=== PATIENT | male | born 1930 | race Caucasian/White ===

== ENCOUNTER 2016-02-27 20:15 | Inpatient (IN) | payer OTHER, BC ==
[~2016-02-27] VITALS: Ht 180.3 cm; Wt 85.7 kg
[2016-02-27 21:03] LABS: HEMATOCRIT 47.3 % (38.0-50.0); MCH 31.9 PG (29.0-34.0); MCHC 33.2 G/DL (30.0-36.0); MCV 96.1 FL (86-99); MEAN PLAT.VOLUME 9.8 uM^3 (9.0-12.4); PLATELET COUNT 235 K/uL (156-360); RBC DIS.WIDTH-CV 13.1 % (11.8-14.6); RBC DIS.WIDTH-SD 44.5 % (39-53); RED BLOOD COUNT 4.92 M/uL (4.00-5.50)
[2016-02-27 21:12] LABS: CHLORIDE 103 mEq/L (99-109); POTASSIUM 4.4 mEq/L (3.7-5.4); SODIUM 142 mEq/L (136-147)
[2016-02-27 21:14] LABS: GLUCOSE 145 mg/dL (70-99)
[2016-02-27 21:16] LABS: ANION GAP 13 MEQ/L (2-14)
[2016-02-27 21:18] LABS: GFR ESTIMATE (CALCULATED) > 59 mL/min/
[2016-02-27 21:19] LABS: UREA NITROGEN (BUN) 26 mg/dL (9-23)
[2016-02-27 21:23] LABS: TROP-I INTERPRETATION NEGATIVE; TROPONIN-I < 0.01 ng/mL (0.0-0.30)
[2016-02-27] MEDS ORDERED: FLOMAX0.4 MG PO (22:37)
[2016-02-27] MEDS ORDERED: SINEMET 10-1001 EACH PO (22:38)
[2016-02-27] MEDS ORDERED: LO-DOSE ASPIRIN81 M1 PO (22:39)
[2016-02-27] MEDS ORDERED: THERAGRAN1 TABLET PO (22:39)
[2016-02-27] MEDS ORDERED: LEXAPRO10 MG PO (22:39)
[2016-02-27] MEDS ORDERED: ARICEPT10 MG PO (22:40)
[2016-02-27] MEDS ORDERED: VITAMIN D-32000 UNI2 PO (22:40)
[2016-02-27 23:57] VITALS: BP 166/71
[2016-02-28] VITALS (7 sets, daily range): BP systolic 89–164; BP diastolic 56–79
[2016-02-28 01:50] LABS: ADD MIUA? NO; BILIRUBIN NEGATIVE; BLOOD NEGATIVE; COLOR DK YELLOW ((YELLOW)); GLUCOSE (STRIP) NEGATIVE; KETONES TRACE; LEUKOCYTES NEGATIVE; NITRITE NEGATIVE; PROTEIN (STRIP) 30; SPECIFIC GRAVITY 1.028 (1.000-1.030); UCUL ADDED? NO; UROBILINOGEN 0.2 MG/DL (0.2-1.0)
[2016-02-28 02:07] LABS: INFLUENZA A VIRAL ANTIGEN NEGATIVE; INFLUENZA B VIRAL ANTIGEN NEGATIVE
[2016-02-28 06:49] LABS: HEMATOCRIT 40.2 % (38.0-50.0); MCH 30.8 PG (29.0-34.0); MCHC 31.8 G/DL (30.0-36.0); MCV 96.9 FL (86-99); MEAN PLAT.VOLUME 10.1 uM^3 (9.0-12.4); PLATELET COUNT 180 K/uL (156-360); RBC DIS.WIDTH-CV 13.2 % (11.8-14.6); RBC DIS.WIDTH-SD 46.5 % (39-53); RED BLOOD COUNT 4.15 M/uL (4.00-5.50)
[2016-02-28 06:50] LABS: C DIFF TOXIN NEGATIVE (NEGATIVE)
[2016-02-28 06:50] LABS: WHITE BLOOD COUNT 9.5 K/uL (4.1-10.2)
[2016-02-28 06:53] LABS: PROBE CHECK PASS; SPECIMEN PROCESSING CONTROL PASS
[2016-02-28 08:11] LABS: INTERNAL CONTROL VALID? YES
[2016-02-29] VITALS: BP 106/51
[2016-02-29 04:00] VITALS: BP 103/61
[2016-02-29 06:59] LABS: HEMATOCRIT 35.4 % (38.0-50.0); MCH 31.6 PG (29.0-34.0); MCHC 32.8 G/DL (30.0-36.0); MCV 96.5 FL (86-99); MEAN PLAT.VOLUME 10.5 uM^3 (9.0-12.4); PLATELET COUNT 170 K/uL (156-360); RBC DIS.WIDTH-CV 13.5 % (11.8-14.6); RBC DIS.WIDTH-SD 47.6 % (39-53); RED BLOOD COUNT 3.67 M/uL (4.00-5.50)
[2016-02-29 07:25] LABS: ANION GAP 5 MEQ/L (2-14); CHLORIDE 110 MEQ/L (99-109); GFR ESTIMATE (CALCULATED) > 59 mL/min/; POTASSIUM 3.6 MEQ/L (3.7-5.4); SAMPLE HEMOLYSIS CHECK 0; SAMPLE ICTERIC CHECK 0; SAMPLE LIPEMIA CHECK 0; SODIUM 141 MEQ/L (136-147); UREA NITROGEN (BUN) 25 mg/dL (9-23)
[2016-02-29 07:26] LABS: GLUCOSE 88 mg/dL (70-99)
[2016-02-29 08:06] VITALS: BP 112/65
[2016-02-29 16:04] VITALS: BP 116/65
[2016-02-29 21:02] VITALS: BP 109/60
[2016-02-29 22:53] LABS: ADD MIUA? YES; BILIRUBIN NEGATIVE; BLOOD LARGE; COLOR YELLOW ((YELLOW)); GLUCOSE (STRIP) NEGATIVE; KETONES NEGATIVE; LEUKOCYTES NEGATIVE; NITRITE NEGATIVE; PROTEIN (STRIP) TRACE; SPECIFIC GRAVITY 1.021 (1.000-1.030); UROBILINOGEN 0.2 MG/DL (0.2-1.0)
[2016-02-29 23:24] LABS: BACTERIA NONE SEEN; CASTS NONE SEEN /LPF; CRYSTALS NONE SEEN; EPITHELIAL CELLS 1+; MUCUS NONE SEEN; RED BLOOD CELLS 20-30 /HPF (0-5); UCUL ADDED? NO; WHITE BLOOD CELLS 0-5 /HPF (0-5)
[2016-03-01 07:40] VITALS: BP 110/64
[2016-03-01 11:30] LABS: HEMATOCRIT 36.2 % (38.0-50.0); MCHC 33.1 G/DL (30.0-36.0); MCV 93.5 FL (86-99); MEAN PLAT.VOLUME 10.8 uM^3 (9.0-12.4); PLATELET COUNT 180 K/uL (156-360); RBC DIS.WIDTH-CV 13.2 % (11.8-14.6); RBC DIS.WIDTH-SD 45.5 % (39-53); RED BLOOD COUNT 3.87 M/uL (4.00-5.50); WHITE BLOOD COUNT 12.4 K/uL (4.1-10.2)
[2016-03-01 11:38] VITALS: BP 105/56
[2016-03-01 11:58] LABS: ANION GAP 10 MEQ/L (2-14); CHLORIDE 110 MEQ/L (99-109); GFR ESTIMATE (CALCULATED) > 59 mL/min/; GLUCOSE 95 mg/dL (70-99); POTASSIUM 3.6 MEQ/L (3.7-5.4); SAMPLE HEMOLYSIS CHECK 0; SAMPLE ICTERIC CHECK 0; SAMPLE LIPEMIA CHECK 0; SODIUM 144 MEQ/L (136-147); UREA NITROGEN (BUN) 18 mg/dL (9-23)
[2016-03-01 15:55] VITALS: BP 110/60
[2016-03-01 20:00] VITALS: BP 108/58
[2016-03-02] VITALS: BP 135/64
[2016-03-02 03:45] VITALS: BP 106/52
[2016-03-02 08:00] VITALS: BP 104/59
[2016-03-02 11:40] VITALS: BP 123/67
[2016-03-02 16:55] VITALS: BP 119/65
[2016-03-02 20:00] VITALS: BP 121/65
[2016-03-03] VITALS: BP 129/65
[2016-03-03 04:39] VITALS: BP 136/73
[2016-03-03 06:37] LABS: BASE EXCESS 1.9 mEq/L (-3 to +3); BICARBONATE 25.6 mEq/L (22-26); CARBOXY HGB 2.3 % (0-5); COMMENTS - BLOOD GASES A+C+; DEVICE VENTI MASK; METHEMOGLOBIN 1.7 % (0-1.5); O2 FLOW 12 L/MIN; PCO2 36 mm Hg (35-45); PO2 53 mm Hg (80-100); SITE LR; pH 7.46 (7.35-7.45)
[2016-03-03 06:38] LABS: FI02 50 %; TOTAL RESP RATE 19 resp/min
[2016-03-03 08:58] VITALS: BP 109/64
[2016-03-03 09:05] LABS: HEMATOCRIT 37.3 % (38.0-50.0); MCH 32.6 PG (29.0-34.0); MCHC 34.9 G/DL (30.0-36.0); MCV 93.5 FL (86-99); MEAN PLAT.VOLUME 10.9 uM^3 (9.0-12.4); PLATELET COUNT 221 K/uL (156-360); RBC DIS.WIDTH-CV 13.2 % (11.8-14.6); RBC DIS.WIDTH-SD 45.1 % (39-53); RED BLOOD COUNT 3.99 M/uL (4.00-5.50); WHITE BLOOD COUNT 11.3 K/uL (4.1-10.2)
[2016-03-03 09:41] LABS: ANION GAP 9 MEQ/L (2-14); CHLORIDE 111 MEQ/L (99-109); GFR ESTIMATE (CALCULATED) > 59 mL/min/; GLUCOSE 110 mg/dL (70-99); POTASSIUM 3.1 MEQ/L (3.7-5.4); SAMPLE HEMOLYSIS CHECK 0; SAMPLE ICTERIC CHECK 0; SAMPLE LIPEMIA CHECK 0; SODIUM 148 MEQ/L (136-147); UREA NITROGEN (BUN) 18 mg/dL (9-23)
[2016-03-03 12:18] VITALS: BP 109/56
[2016-03-03 15:03] VITALS: BP 132/60
[2016-03-03 20:00] VITALS: BP 102/54
[2016-03-04] VITALS: BP 135/83
[2016-03-04 04:00] VITALS: BP 122/55
[2016-03-04 06:30] LABS: HEMATOCRIT 36.4 % (38.0-50.0); MCH 30.3 PG (29.0-34.0); MCHC 32.4 G/DL (30.0-36.0); MCV 93.6 FL (86-99); MEAN PLAT.VOLUME 10.9 uM^3 (9.0-12.4); PLATELET COUNT 263 K/uL (156-360); RBC DIS.WIDTH-CV 13.5 % (11.8-14.6); RBC DIS.WIDTH-SD 45.9 % (39-53); RED BLOOD COUNT 3.89 M/uL (4.00-5.50); WHITE BLOOD COUNT 11.8 K/uL (4.1-10.2)
[2016-03-04 06:47] LABS: ANION GAP 8 MEQ/L (2-14); CHLORIDE 110 MEQ/L (99-109); GFR ESTIMATE (CALCULATED) > 59 mL/min/; GLUCOSE 136 mg/dL (70-99); POTASSIUM 3.5 MEQ/L (3.7-5.4); SAMPLE HEMOLYSIS CHECK 0; SAMPLE ICTERIC CHECK 0; SAMPLE LIPEMIA CHECK 0; SODIUM 146 MEQ/L (136-147); UREA NITROGEN (BUN) 22 mg/dL (9-23)
[2016-03-04 07:46] VITALS: BP 145/84
[2016-03-04 10:55] VITALS: BP 100/60
[2016-03-04 14:54] VITALS: BP 104/58
[2016-03-04 20:00] VITALS: BP 122/69
[2016-03-05] VITALS (7 sets, daily range): BP systolic 139–170; BP diastolic 66–84
[2016-03-05 11:26] LABS: ANION GAP 10 MEQ/L (2-14); CHLORIDE 108 MEQ/L (99-109); GFR ESTIMATE (CALCULATED) > 59 mL/min/; GLUCOSE 89 mg/dL (70-99); MAGNESIUM 2.1 mg/dl (1.3-2.7); POTASSIUM 3.6 MEQ/L (3.7-5.4); SAMPLE HEMOLYSIS CHECK 0; SAMPLE ICTERIC CHECK 0; SAMPLE LIPEMIA CHECK 0; SODIUM 148 MEQ/L (136-147); UREA NITROGEN (BUN) 25 mg/dL (9-23)
[2016-03-06] VITALS: BP 159/80
[2016-03-06 03:39] VITALS: BP 152/73
[2016-03-06 07:59] VITALS: BP 140/69
[2016-03-06 16:09] VITALS: BP 137/64
[2016-03-07] VITALS: BP 122/72
[2016-03-07 08:14] VITALS: BP 137/63
[2016-03-07 09:47] LABS: HEMATOCRIT 40.1 % (38.0-50.0); MCH 31.6 PG (29.0-34.0); MCHC 33.4 G/DL (30.0-36.0); MCV 94.6 FL (86-99); RBC DIS.WIDTH-CV 13.5 % (11.8-14.6); RBC DIS.WIDTH-SD 46.3 % (39-53); RED BLOOD COUNT 4.24 M/uL (4.00-5.50); WHITE BLOOD COUNT 13.6 K/uL (4.1-10.2)
[2016-03-07 09:56] LABS: MEAN PLAT.VOLUME 10.7 uM^3 (9.0-12.4); PLATELET COUNT 367 K/uL (156-360)
[2016-03-07 10:00] LABS: ADD MIUA? NO; BILIRUBIN NEGATIVE; BLOOD NEGATIVE; COLOR YELLOW ((YELLOW)); GLUCOSE (STRIP) NEGATIVE; KETONES NEGATIVE; LEUKOCYTES NEGATIVE; NITRITE NEGATIVE; PH, URINE 7.5 (5-8); PROTEIN (STRIP) NEGATIVE; SPECIFIC GRAVITY 1.025 (1.000-1.030); UROBILINOGEN 0.2 MG/DL (0.2-1.0)
[2016-03-07 10:08] LABS: UCUL ADDED? NO
[2016-03-07 10:42] LABS: ANION GAP 12 MEQ/L (2-14); CHLORIDE 108 MEQ/L (99-109); GFR ESTIMATE (CALCULATED) > 59 mL/min/; GLUCOSE 69 mg/dL (70-99); SAMPLE HEMOLYSIS CHECK 0; SAMPLE ICTERIC CHECK 0; SAMPLE LIPEMIA CHECK 0; SODIUM 144 MEQ/L (136-147); UREA NITROGEN (BUN) 21 mg/dL (9-23)
[2016-03-07 10:43] LABS: POTASSIUM 4.5 MEQ/L (3.7-5.4)
[2016-03-07 15:57] VITALS: BP 80/60
[2016-03-07 23:55] VITALS: BP 142/81
[2016-03-08 08:02] VITALS: BP 121/58
[2016-03-08 15:36] VITALS: BP 120/85
[2016-03-08 23:49] VITALS: BP 133/70
[2016-03-09 07:53] VITALS: BP 123/59
[2016-03-09 15:17] VITALS: BP 87/54
[2016-03-10 00:32] VITALS: BP 165/77
[2016-03-10 08:00] VITALS: BP 113/63
[2016-03-10 15:30] VITALS: BP 126/78
[2016-03-11] VITALS: BP 128/72
[2016-03-11 08:01] VITALS: BP 121/67
[2016-03-11 16:08] VITALS: BP 136/73
[2016-03-12 00:03] VITALS: BP 140/81
[2016-03-12 07:57] VITALS: BP 137/66
[2016-03-12 16:04] VITALS: BP 142/72
[2016-03-12 23:40] VITALS: BP 94/55
[2016-03-13 07:57] VITALS: BP 107/65
[2016-03-13 15:42] VITALS: BP 115/71
[2016-03-14 00:04] VITALS: BP 103/60
[2016-03-14 07:39] VITALS: BP 112/65
[2016-03-14] MEDS ORDERED: DONEPEZIL HCL5 MG PO (13:19)
[2016-03-14] MEDS ORDERED: PRAMIPEXOLE D0.25 MG PO (13:20)
[2016-03-14] MEDS ORDERED: DRONABINOL2.5 MG PO (13:20)
[2016-03-14] MEDS ORDERED: ESCITALOPRAM OX20 MG PO (13:20)
[2016-03-14 15:39] VITALS: BP 144/65
== END 2016-03-14 17:08 | DRG 871 ==
LOC: EME 20:15 → EDBD 20:15 → EDOF 22:32 → 5WEST 23:38 → 5SOUTH 02-28 00:52 → 5WEST 02-28 00:52 → 5SOUTH 02-28 03:05
PROVIDERS: Hospitalist; Internal Medicine; Physician Assistant; Physician Assistant Medical; Student in an Organized Health Care Education/Training Program
DX: A41.9 Sepsis, unspecified organism (principal); J69.0 Pneumonitis due to inhalation of food and vomit; R64 Cachexia; R62.7 Adult failure to thrive; G31.83 Neurocognitive disorder with Lewy bodies; F02.81 Dementia in other diseases classified elsewhere, unspecified severity, with behavioral disturbance; E87.2 Acidosis; E86.0 Dehydration; L73.9 Follicular disorder, unspecified; B36.9 Superficial mycosis, unspecified; N40.1 Benign prostatic hyperplasia with lower urinary tract symptoms; R33.9 Retention of urine, unspecified; I35.0 Nonrheumatic aortic (valve) stenosis; R09.02 Hypoxemia; R55 Syncope and collapse; R19.7 Diarrhea, unspecified; I45.10 Unspecified right bundle-branch block; H10.9 Unspecified conjunctivitis
CPT/HCPCS: 36600; 71010; 71250; 74000; 80048; 81003; 82803; 82948; 83605; 83735; 84484; 85027; 87040; 87070; 87205; 87449; 87493; 87502; 92610 GN; 93005; 93306; 94640; 94799; 97530 GO; 97530 GP; 99202; 99281; 99285; G0378; J0456; J0696; J1644; J1940; J2060; J2405; J2543; J7030; J7050; J7512; Q0167; S0030

== ENCOUNTER 2016-04-02 16:34 | Inpatient (IN) | payer OTHER, BC ==
[~2016-04-02] VITALS: Ht 180.3 cm; Wt 93.0 kg
[~2016-04-02 16:34] MED LIST: ARICEPT10 MG PO; DONEPEZIL HCL5 MG PO; DRONABINOL2.5 MG PO; ESCITALOPRAM OX20 MG PO; FLOMAX0.4 MG PO; LEXAPRO10 MG PO; LO-DOSE ASPIRIN81 M1 PO; PRAMIPEXOLE D0.25 MG PO; SINEMET 10-1001 EACH PO; THERAGRAN1 TABLET PO; VITAMIN D-32000 UNI2 PO
[2016-04-02 17:08] LABS: EOSINOPHIL (%) 0 % (0-5); HEMATOCRIT 42.8 % (38.0-50.0); IMMATURE GRANULOCYTE (%) 0.6 % (0.0-0.7); IMMATURE GRANULOCYTE COUNT 1.3 K/uL; LYMPHOCYTE COUNT 0.4 K/uL (1.0-2.8); MCH 30.7 PG (29.0-34.0); MCHC 32.9 G/DL (30.0-36.0); MCV 93.2 FL (86-99); MEAN PLAT.VOLUME 9.8 uM^3 (9.0-12.4); NEUTROPHIL (%) 92.4 % (45-76); PLATELET COUNT 432 K/uL (156-360); RBC DIS.WIDTH-CV 13.7 % (11.8-14.6); RBC DIS.WIDTH-SD 45.4 % (39-53); RED BLOOD COUNT 4.59 M/uL (4.00-5.50); WHITE BLOOD COUNT 20.6 K/uL (4.1-10.2)
[2016-04-02 17:16] LABS: CHLORIDE 110 mEq/L (99-109); POTASSIUM 3.6 mEq/L (3.7-5.4); SODIUM 148 mEq/L (136-147)
[2016-04-02 17:19] LABS: ANION GAP 16 MEQ/L (2-14); INTER. NORMALIZED RATIO 1.5; PROTHROMBIN TIME 15.9 (9.2-11.2); PTT 41.8 (25-32)
[2016-04-02 17:20] LABS: GLUCOSE 124 mg/dL (70-99); TOTAL BILIRUBIN 0.5 mg/dL (0.0-1.0)
[2016-04-02 17:22] LABS: ALKALINE PHOSPHATASE 72 IU/L (3-129); GFR ESTIMATE (CALCULATED) 38 mL/min/
[2016-04-02 17:23] LABS: UREA NITROGEN (BUN) 31 mg/dL (9-23)
[2016-04-02 17:25] LABS: LIPASE 10 U/L (1.0-51.0)
[2016-04-02 17:31] LABS: TROP-I INTERPRETATION NEGATIVE; TROPONIN-I 0.08 ng/mL (0.0-0.30)
[2016-04-02] MEDS ORDERED: ROCEPHIN1000 MG IM (17:50)
[2016-04-02] MEDS ORDERED: LIDOCAINE10 MG/1 ML IJ (17:52)
[2016-04-02] MEDS ORDERED: ASPIRIN81 M2 PO (17:53)
[2016-04-02] MEDS ORDERED: SINEMET 25-2501 EAC1 PO (17:54)
[2016-04-02] MEDS ORDERED: LEXAPRO20 MG PO (17:55)
[2016-04-02] MEDS ORDERED: POLYVINYL ALCOH15 ML BOTH EYES (17:58)
[2016-04-02] MEDS ORDERED: SENNA PLUS TAB1 EACH PO (17:58)
[2016-04-02] MEDS ORDERED: MIRTAZAPINE15 MG PO (17:58)
[2016-04-02] MEDS ORDERED: VITAMIN D-32000 UNI2 PO (17:59)
[2016-04-02] MEDS ORDERED: SERTRALINE HCL50 MG PO (18:00)
[2016-04-02] MEDS ORDERED: TYLENOL REGULA325 MG PO (18:01)
[2016-04-02] MEDS ORDERED: DULCOLAX10 MG PR (18:01)
[2016-04-02] MEDS ORDERED: PHILLIPS'400 MG/5 M PO (18:02)
[2016-04-02] MEDS ORDERED: SILVADENE20 GM TP (18:03)
[2016-04-02] MEDS ORDERED: TRIAMCINOLONE A15 GM TP (18:04)
[2016-04-02 19:28] LABS: ADD MIUA? YES; BILIRUBIN NEGATIVE; BLOOD LARGE; COLOR AMBER ((YELLOW)); GLUCOSE (STRIP) NEGATIVE; KETONES 5; LEUKOCYTES NEGATIVE; NITRITE NEGATIVE; PROTEIN (STRIP) 100; UROBILINOGEN 0.2 MG/DL (0.2-1.0)
[2016-04-02 19:45] LABS: EPITHELIAL CELLS NONE SEEN /HPF; MUCUS 1+ /LPF; RED BLOOD CELLS 30-40 /HPF (0-5); WHITE BLOOD CELLS 0-5 /HPF (0-5)
[2016-04-02 19:46] LABS: AMORPHOUS URATES CRYSTALS 1+; BACTERIA NONE SEEN /HPF; CASTS NONE SEEN /LPF; CRYSTALS PRESENT; UCUL ADDED? NO
[2016-04-02 23:42] VITALS: BP 130/61
[2016-04-03 04:00] VITALS: BP 122/61
[2016-04-03 06:50] LABS: METH RESISTANT S AUREUS PCR NEGATIVE (NEGATIVE); PROBE CHECK PASS; SPECIMEN PROCESSING CONTROL PASS
[2016-04-03 07:03] VITALS: BP 110/60
[2016-04-03 07:16] LABS: VANCOMYCIN, TROUGH 8.7 MCG/ML (10-20)
[2016-04-03 10:44] LABS: GFR ESTIMATE (CALCULATED) > 59 mL/min/
[2016-04-03 16:25] VITALS: BP 102/57
[2016-04-03 19:40] VITALS: BP 110/56
[2016-04-04] VITALS (8 sets, daily range): BP systolic 115–190; BP diastolic 62–83
[2016-04-05 04:31] VITALS: BP 111/62
[2016-04-05 06:43] LABS: EOSINOPHIL (%) 0 % (0-5); HEMATOCRIT 38.1 % (38.0-50.0); IMMATURE GRANULOCYTE COUNT 0.3 K/uL; LYMPHOCYTE COUNT 0.8 K/uL (1.0-2.8); MCH 31.2 PG (29.0-34.0); MCHC 33.3 G/DL (30.0-36.0); MCV 93.6 FL (86-99); MONOCYTE COUNT 1.4 K/uL (0-0.8); NEUTROPHIL (%) 91.1 % (45-76); NEUTROPHIL COUNT 25.5 K/uL (1.8-6.4); RBC DIS.WIDTH-CV 14.1 % (11.8-14.6); RBC DIS.WIDTH-SD 48.3 % (39-53); RED BLOOD COUNT 4.07 M/uL (4.00-5.50)
[2016-04-05 07:11] LABS: HEMATOLOGY COMMENT 1 SMEAR COMPATIBLE; MEAN PLAT.VOLUME 11.1 uM^3 (9.0-12.4); PLAT.SUFFICIENCY ADEQUATE; PLATELET COUNT 329 K/uL (156-360); USER ID CCL
[2016-04-05 07:18] LABS: GFR ESTIMATE (CALCULATED) > 59 mL/min/; SAMPLE HEMOLYSIS CHECK 0; SAMPLE ICTERIC CHECK 0; SAMPLE LIPEMIA CHECK 0; UREA NITROGEN (BUN) 20 mg/dL (9-23)
[2016-04-05 07:21] LABS: GLUCOSE 82 mg/dL (70-99)
[2016-04-05 07:22] LABS: CHLORIDE 120 MEQ/L (99-109)
[2016-04-05 07:30] LABS: ANION GAP 12 MEQ/L (2-14); POTASSIUM 3.4 MEQ/L (3.7-5.4)
[2016-04-05 07:32] LABS: SODIUM 158 MEQ/L (136-147)
[2016-04-05 08:33] VITALS: BP 111/60
[2016-04-05 11:56] VITALS: BP 116/61
[2016-04-05 15:18] VITALS: BP 124/78
[2016-04-05 19:48] VITALS: BP 126/68
[2016-04-05 23:24] VITALS: BP 121/63
[2016-04-06 03:56] VITALS: BP 119/71
[2016-04-06 06:55] LABS: HEMATOCRIT 37.7 % (38.0-50.0); MCH 29.3 PG (29.0-34.0); MCV 94.3 FL (86-99); MEAN PLAT.VOLUME 11.2 uM^3 (9.0-12.4); PLATELET COUNT 320 K/uL (156-360); RBC DIS.WIDTH-CV 14.5 % (11.8-14.6); WHITE BLOOD COUNT 23.9 K/uL (4.1-10.2)
[2016-04-06 07:29] LABS: ANION GAP 9 MEQ/L (2-14); CHLORIDE 126 MEQ/L (99-109); GFR ESTIMATE (CALCULATED) > 59 mL/min/; POTASSIUM 3.3 MEQ/L (3.7-5.4); SAMPLE HEMOLYSIS CHECK 0; SAMPLE ICTERIC CHECK 0; SAMPLE LIPEMIA CHECK 0; UREA NITROGEN (BUN) 22 mg/dL (9-23)
[2016-04-06 07:30] LABS: GLUCOSE 110 mg/dL (70-99)
[2016-04-06 07:31] LABS: SODIUM 162 MEQ/L (136-147)
[2016-04-06 20:51] VITALS: BP 119/65
[2016-04-06 23:31] VITALS: BP 127/61
[2016-04-07 04:32] VITALS: BP 116/68
[2016-04-07 08:02] LABS: ANION GAP 9 MEQ/L (2-14); CHLORIDE 130 MEQ/L (99-109); GFR ESTIMATE (CALCULATED) > 59 mL/min/; GLUCOSE 117 mg/dL (70-99); POTASSIUM 3.4 MEQ/L (3.7-5.4); SAMPLE HEMOLYSIS CHECK 0; SAMPLE ICTERIC CHECK 0; SAMPLE LIPEMIA CHECK 0; UREA NITROGEN (BUN) 27 mg/dL (9-23)
[2016-04-07 08:13] LABS: SODIUM 165 MEQ/L (136-147)
[2016-04-07 09:00] VITALS: BP 139/65
[2016-04-07 15:28] VITALS: BP 104/57
[2016-04-07 20:42] VITALS: BP 114/59
[2016-04-08 00:47] VITALS: BP 113/59
[2016-04-08 05:14] VITALS: BP 110/56
[2016-04-08 07:15] VITALS: BP 138/69
== END 2016-04-08 14:57 | DRG 871 ==
LOC: EME → EDBD 16:34 → EDOF 22:20 → 4EAST 22:20
PROVIDERS: Emergency Medicine; Family Medicine; Internal Medicine; Internal Medicine Pulmonary Disease
DX: A41.9 Sepsis, unspecified organism (principal); R65.21 Severe sepsis with septic shock; J69.0 Pneumonitis due to inhalation of food and vomit; J96.01 Acute respiratory failure with hypoxia; R40.20 Unspecified coma; E87.0 Hyperosmolality and hypernatremia; G20 Parkinson's disease; Z66 Do not resuscitate; Z51.5 Encounter for palliative care; D64.9 Anemia, unspecified; R62.7 Adult failure to thrive; F03.90 Unspecified dementia, unspecified severity, without behavioral disturbance, psychotic disturbance, mood disturbance, and anxiety; E87.8 Other disorders of electrolyte and fluid balance, not elsewhere classified; N40.0 Benign prostatic hyperplasia without lower urinary tract symptoms; J44.9 Chronic obstructive pulmonary disease, unspecified; R32 Unspecified urinary incontinence; E86.0 Dehydration; R45.1 Restlessness and agitation; F45.8 Other somatoform disorders; Z91.041 Radiographic dye allergy status; Z82.49 Family history of ischemic heart disease and other diseases of the circulatory system
CPT/HCPCS: 70450; 71010; 80048; 80053; 80202; 81003; 82565; 83605; 83690; 84484; 85025; 85025 91; 85027; 85610; 85730; 87040; 87641; 93005; 94799; 99281; 99285; C9113; J0456; J1644; J2270; J2543; J3370; J3480; J7042; J7050; J7070